=== PATIENT | female | born 1950 | race African-American/Black ===

== ENCOUNTER 2018-04-28 15:38 | Inpatient (IN) | payer OTHER ==
[~2018-04-28] VITALS: Ht 167.6 cm; Wt 79.4 kg
[~2018-04-28 15:38] MED LIST: AMARYL; AMLODIPINE BESYL5 MG PO; ASA81 MG; CIPRO500 MG PO; GABAPENTIN600 MG PO; HYDROCHLORIC2 MG/ML; LANTUS SOL100 UNIT/1; LASIX20 MG PO; LEVOTHYROXINE150 MCG PO; METFORMIN HCL500 MG; NEURONTIN300 MG; NOVOLOG100 U/ML; PRINIVIL5 MG; SYNTHROID50 MCG; TRIMETHOPRIM100 MG PO
[2018-04-28] MEDS ORDERED: ENALAPRIL MALEA10 MG (15:54)
[2018-04-28] MEDS ORDERED: HYDROCHLOROTH12.5 MG (15:55)
[2018-05-14] MEDS ORDERED: PENTOXIFYLLINE400 MG PO (11:19)
[2018-05-14] MEDS ORDERED: HumaLOG 100 UNIT/1 M SUBCUTANEO (11:19)
[2018-05-14] MEDS ORDERED: NeurRONTin 400MG CAP PO (11:19)
[2018-05-14] MEDS ORDERED: AMLODIPINE BESYL5 MG PO (11:19)
[2018-05-14] MEDS ORDERED: ASA-EC81 MG PO (11:19)
[2018-05-14] MEDS ORDERED: LEVOTHYROXINE150 MCG PO (11:19)
[2018-05-14] MEDS ORDERED: Lantus 1000 UNITS/10 SUBCUTANEO (11:19)
[2018-05-14] MEDS ORDERED: METOPROLOL TART50 MG PO (11:19)
== END 2018-05-14 14:19 | disposition home or self-care (01) | DRG 871 ==
LOC: ER 15:38 → SEC-K 04-29 12:48 → MEDJ 04-29 12:48
PROVIDERS: Radiology Vascular & Interventional Radiology
PROC: BT43ZZZ Ultrasonography of Bilateral Kidneys (ICD-10-PCS; 2018-04-29)
PROC: B543ZZA Ultrasonography of Right Jugular Veins, Guidance (ICD-10-PCS; 2018-05-05)
PROC: 05HM33Z Insertion of Infusion Device into Right Internal Jugular Vein, Percutaneous Approach (ICD-10-PCS; principal; 2018-05-05 21:00)
PROC: 5A1D70Z Performance of Urinary Filtration, Intermittent, Less than 6 Hours Per Day (ICD-10-PCS; 2018-05-06)
PROC: 30233N1 Transfusion of Nonautologous Red Blood Cells into Peripheral Vein, Percutaneous Approach (ICD-10-PCS; 2018-05-11)
DX: A41.9 Sepsis, unspecified organism (principal); J81.0 Acute pulmonary edema; N18.6 End stage renal disease; I50.33 Acute on chronic diastolic (congestive) heart failure; N39.0 Urinary tract infection, site not specified; N17.8 Other acute kidney failure; I13.2 Hypertensive heart and chronic kidney disease with heart failure and with stage 5 chronic kidney disease, or end stage renal disease; E86.0 Dehydration; K29.00 Acute gastritis without bleeding; E11.42 Type 2 diabetes mellitus with diabetic polyneuropathy; E11.22 Type 2 diabetes mellitus with diabetic chronic kidney disease; E89.0 Postprocedural hypothyroidism; E11.65 Type 2 diabetes mellitus with hyperglycemia; Z89.422 Acquired absence of other left toe(s); Z90.5 Acquired absence of kidney; D63.1 Anemia in chronic kidney disease

== ENCOUNTER 2018-05-27 08:39 | Inpatient (IN) | payer OTHER ==
[~2018-05-27] VITALS: Ht 167.6 cm; Wt 81.6 kg
[~2018-05-27 08:39] MED LIST changes: +ASA-EC81 MG PO; +ENALAPRIL MALEA10 MG; +HYDROCHLOROTH12.5 MG; +HumaLOG 100 UNIT/1 M SUBCUTANEO; +Lantus 1000 UNITS/10 SUBCUTANEO; +METOPROLOL TART50 MG PO; +NeurRONTin 400MG CAP PO; +PENTOXIFYLLINE400 MG PO
[2018-06-09] MEDS ORDERED: NeurRONTin 400MG CAP PO (16:39)
[2018-06-09] MEDS ORDERED: HumaLOG 100 UNIT/1 M SUBCUTANEO (16:39)
[2018-06-09] MEDS ORDERED: TOPROL XL50 M1 PO (16:39)
[2018-06-09] MEDS ORDERED: LISINOPRIL20 MG PO (16:39)
[2018-06-09] MEDS ORDERED: ADULT ASPIRIN81 MG PO (16:39)
[2018-06-09] MEDS ORDERED: Lantus 1000 UNITS/10 SUBCUTANEO (16:39)
[2018-06-09] MEDS ORDERED: LEVOTHYROXINE150 MCG PO (16:39)
[2018-06-09] MEDS ORDERED: AMLODIPINE BESYL5 MG PO (16:39)
== END 2018-06-09 22:13 | disposition home health service (06) | DRG 264 ==
LOC: ER 08:39 → SURH 16:33 → SEC-K 16:33 → MEDI 19:16 → MEDJ 21:00 → SURH 21:16
PROC: 5A1D70Z Performance of Urinary Filtration, Intermittent, Less than 6 Hours Per Day (ICD-10-PCS; 2018-05-28)
PROC: 0QBR0ZZ Excision of Left Toe Phalanx, Open Approach (ICD-10-PCS; principal; 2018-06-01)
PROC: 0JBR0ZZ Excision of Left Foot Subcutaneous Tissue and Fascia, Open Approach (ICD-10-PCS; 2018-06-08)
DX: E11.52 Type 2 diabetes mellitus with diabetic peripheral angiopathy with gangrene (principal); N18.6 End stage renal disease; I96 Gangrene, not elsewhere classified; I13.2 Hypertensive heart and chronic kidney disease with heart failure and with stage 5 chronic kidney disease, or end stage renal disease; N17.8 Other acute kidney failure; M86.172 Other acute osteomyelitis, left ankle and foot; I50.30 Unspecified diastolic (congestive) heart failure; E11.65 Type 2 diabetes mellitus with hyperglycemia; E11.22 Type 2 diabetes mellitus with diabetic chronic kidney disease; Z99.2 Dependence on renal dialysis; E03.8 Other specified hypothyroidism; D63.1 Anemia in chronic kidney disease; E11.42 Type 2 diabetes mellitus with diabetic polyneuropathy; E86.0 Dehydration; B96.1 Klebsiella pneumoniae [K. pneumoniae] as the cause of diseases classified elsewhere; B95.1 Streptococcus, group B, as the cause of diseases classified elsewhere; B95.61 Methicillin susceptible Staphylococcus aureus infection as the cause of diseases classified elsewhere; Z16.12 Extended spectrum beta lactamase (ESBL) resistance; E11.69 Type 2 diabetes mellitus with other specified complication

== ENCOUNTER 2018-10-31 13:25 | Inpatient (IN) | payer OTHER ==
[~2018-10-31] VITALS: Ht 170.2 cm; Wt 82.6 kg
[~2018-10-31 13:25] MED LIST changes: +ADULT ASPIRIN81 MG PO; +LISINOPRIL20 MG PO; +TOPROL XL50 M1 PO
[2018-11-02] MEDS ORDERED: LANTUS SOL100 UNIT/1 SUBCUTANEO (11:03)
[2018-11-02] MEDS ORDERED: HUMALOG100 UNIT/1 SUBCUTANEO (11:06)
== END 2018-11-11 19:55 | disposition home or self-care (01) | DRG 314 ==
LOC: ER 13:25 → MEDI 11-01 09:37
PROVIDERS: Radiology Vascular & Interventional Radiology; ADMIT Internal Medicine
PROC: 0JHD3XZ Insertion of Tunneled Vascular Access Device into Right Upper Arm Subcutaneous Tissue and Fascia, Percutaneous Approach (ICD-10-PCS; 2018-11-04)
PROC: 0JPV3XZ Removal of Tunneled Vascular Access Device from Upper Extremity Subcutaneous Tissue and Fascia, Percutaneous Approach (ICD-10-PCS; principal; 2018-11-04 19:00)
PROC: 8E0ZXY6 Isolation (ICD-10-PCS; 2018-11-06)
DX: T82.49XA Other complication of vascular dialysis catheter, initial encounter (principal); N18.6 End stage renal disease; J96.21 Acute and chronic respiratory failure with hypoxia; A41.89 Other specified sepsis; I13.2 Hypertensive heart and chronic kidney disease with heart failure and with stage 5 chronic kidney disease, or end stage renal disease; N17.8 Other acute kidney failure; E11.52 Type 2 diabetes mellitus with diabetic peripheral angiopathy with gangrene; I96 Gangrene, not elsewhere classified; N39.0 Urinary tract infection, site not specified; B37.89 Other sites of candidiasis; E11.22 Type 2 diabetes mellitus with diabetic chronic kidney disease; E11.65 Type 2 diabetes mellitus with hyperglycemia; I50.9 Heart failure, unspecified; Z99.2 Dependence on renal dialysis; Z79.4 Long term (current) use of insulin; Z99.81 Dependence on supplemental oxygen; D63.1 Anemia in chronic kidney disease; Z89.422 Acquired absence of other left toe(s); E11.40 Type 2 diabetes mellitus with diabetic neuropathy, unspecified; Z88.1 Allergy status to other antibiotic agents; E86.0 Dehydration; E87.8 Other disorders of electrolyte and fluid balance, not elsewhere classified; B96.1 Klebsiella pneumoniae [K. pneumoniae] as the cause of diseases classified elsewhere; E86.9 Volume depletion, unspecified

== ENCOUNTER 2019-05-05 10:17 | Emergency (ER) | payer OTHER ==
[~2019-05-05] VITALS: Ht 167.6 cm; Wt 83.0 kg
[~2019-05-05 10:17] MED LIST changes: +HUMALOG100 UNIT/1 SUBCUTANEO; +LANTUS SOL100 UNIT/1 SUBCUTANEO
== END 2019-05-05 18:47 | disposition home or self-care (01) ==
LOC: ER 10:17
DX: N39.0 Urinary tract infection, site not specified (principal); N19 Unspecified kidney failure; K59.09 Other constipation; K31.89 Other diseases of stomach and duodenum; K44.9 Diaphragmatic hernia without obstruction or gangrene; R10.32 Left lower quadrant pain; R11.10 Vomiting, unspecified; K44.1 Diaphragmatic hernia with gangrene

== ENCOUNTER 2019-07-13 20:11 | Inpatient (IN) | payer OTHER ==
[~2019-07-13] VITALS: Ht 167.6 cm; Wt 83.5 kg
--- NOTE | 2019-07-13 20:32 | NUR ---
PACIENTE CON PROBLEMAS EN EL CATETER DE DIALISIS. INSERTADO EN EL AUXILIO MUTUO.
--- NOTE | 2019-07-13 21:22 | NUR ---
SERECIBE PACIENTE ALERTA Y ORIENTADA EVALUADA POR EL DR. MULLINS SE ORIENTA A PACIENTE SOBRE TRATAMIENTO MEDICO SE EXTRAEN MUESTRAS DE [place] Y SE ADMINISTRAN MEDICAMENTOS GERTRUDIS ORDEN MEDICA BAJOMEDIDAS ASEPTICAS.SE CHRISTIAN CULTIVOS DE [place].
== END 2019-07-27 14:43 | disposition home or self-care (01) | DRG 314 ==
LOC: ER 20:11 → SEC-K 22:01 → MEDJ 22:01 → O/R 07-14 08:06 → SEC-K 07-14 10:21 → MEDJ 07-14 11:53
PROVIDERS: Radiology Vascular & Interventional Radiology; ADMIT Internal Medicine
PROC: 05HN33Z Insertion of Infusion Device into Left Internal Jugular Vein, Percutaneous Approach (ICD-10-PCS; 2019-07-14)
PROC: B514YZA Fluoroscopy of Left Jugular Veins using Other Contrast, Guidance (ICD-10-PCS; 2019-07-14)
PROC: 0J2SXYZ Change Other Device in Head and Neck Subcutaneous Tissue and Fascia, External Approach (ICD-10-PCS; principal; 2019-07-14 20:00)
PROC: 8E0ZXY6 Isolation (ICD-10-PCS; 2019-07-15)
PROC: 5A1D70Z Performance of Urinary Filtration, Intermittent, Less than 6 Hours Per Day (ICD-10-PCS; 2019-07-17)
PROC: BN25ZZZ Computerized Tomography (CT Scan) of Facial Bones (ICD-10-PCS; 2019-07-21)
PROC: 0JPV3XZ Removal of Tunneled Vascular Access Device from Upper Extremity Subcutaneous Tissue and Fascia, Percutaneous Approach (ICD-10-PCS; 2019-07-25)
PROC: 0JHF3XZ Insertion of Tunneled Vascular Access Device into Left Upper Arm Subcutaneous Tissue and Fascia, Percutaneous Approach (ICD-10-PCS; 2019-07-25)
DX: T82.41XA Breakdown (mechanical) of vascular dialysis catheter, initial encounter (principal); N18.6 End stage renal disease; I13.2 Hypertensive heart and chronic kidney disease with heart failure and with stage 5 chronic kidney disease, or end stage renal disease; N17.8 Other acute kidney failure; B37.41 Candidal cystitis and urethritis; B37.0 Candidal stomatitis; D63.1 Anemia in chronic kidney disease; E11.65 Type 2 diabetes mellitus with hyperglycemia; E03.8 Other specified hypothyroidism; R31.0 Gross hematuria; B96.1 Klebsiella pneumoniae [K. pneumoniae] as the cause of diseases classified elsewhere; E11.22 Type 2 diabetes mellitus with diabetic chronic kidney disease; Z99.2 Dependence on renal dialysis; Z79.4 Long term (current) use of insulin; Z89.422 Acquired absence of other left toe(s)

== ENCOUNTER 2019-09-08 15:38 | Inpatient (IN) | payer OTHER ==
[~2019-09-08] VITALS: Ht 167.6 cm; Wt 83.0 kg
== END 2019-09-14 18:19 | disposition home or self-care (01) | DRG 699 ==
LOC: ER 15:38 → MEDJ 09-09 11:00
PROVIDERS: ADMIT Internal Medicine
PROC: 8E0ZXY6 Isolation (ICD-10-PCS; principal; 2019-09-09)
DX: E11.22 Type 2 diabetes mellitus with diabetic chronic kidney disease (principal); I12.0 Hypertensive chronic kidney disease with stage 5 chronic kidney disease or end stage renal disease; N39.0 Urinary tract infection, site not specified; E11.65 Type 2 diabetes mellitus with hyperglycemia; E11.40 Type 2 diabetes mellitus with diabetic neuropathy, unspecified; N18.6 End stage renal disease; N17.8 Other acute kidney failure; R31.0 Gross hematuria; D63.1 Anemia in chronic kidney disease; B96.1 Klebsiella pneumoniae [K. pneumoniae] as the cause of diseases classified elsewhere; Z79.4 Long term (current) use of insulin; Z99.2 Dependence on renal dialysis

== ENCOUNTER 2019-10-14 10:17 | Emergency (ER) | payer OTHER ==
[~2019-10-14] VITALS: Ht 167.6 cm; Wt 83.0 kg
== END 2019-10-14 20:40 | disposition home or self-care (01) ==
LOC: ER 10:17
DX: K29.70 Gastritis, unspecified, without bleeding (principal); R10.13 Epigastric pain

== ENCOUNTER 2019-11-21 05:40 | Inpatient (IN) | payer OTHER ==
[~2019-11-21] VITALS: Ht 162.6 cm; Wt 95.3 kg
[2019-12-19] MEDS ORDERED: FLUCONAZOLE200 MG PO (12:28)
== END 2019-12-19 14:04 | disposition home or self-care (01) | DRG 207 ==
LOC: ER 05:40 → ICU-2 08:21 → MEDJ 11-25 15:17
PROVIDERS: ADMIT Internal Medicine
PROC: 0BH17EZ Insertion of Endotracheal Airway into Trachea, Via Natural or Artificial Opening (ICD-10-PCS; principal; 2019-11-21)
PROC: 5A1955Z Respiratory Ventilation, Greater than 96 Consecutive Hours (ICD-10-PCS; 2019-11-21)
PROC: 5A1D70Z Performance of Urinary Filtration, Intermittent, Less than 6 Hours Per Day (ICD-10-PCS; 2019-11-22)
PROC: 4A033R1 Measurement of Arterial Saturation, Peripheral, Percutaneous Approach (ICD-10-PCS; 2019-11-23)
PROC: 30233N1 Transfusion of Nonautologous Red Blood Cells into Peripheral Vein, Percutaneous Approach (ICD-10-PCS; 2019-11-24)
DX: J96.00 Acute respiratory failure, unspecified whether with hypoxia or hypercapnia (principal); N18.6 End stage renal disease; J69.0 Pneumonitis due to inhalation of food and vomit; I12.0 Hypertensive chronic kidney disease with stage 5 chronic kidney disease or end stage renal disease; N39.0 Urinary tract infection, site not specified; Z16.12 Extended spectrum beta lactamase (ESBL) resistance; E11.22 Type 2 diabetes mellitus with diabetic chronic kidney disease; E11.40 Type 2 diabetes mellitus with diabetic neuropathy, unspecified; E11.65 Type 2 diabetes mellitus with hyperglycemia; E11.649 Type 2 diabetes mellitus with hypoglycemia without coma; D63.1 Anemia in chronic kidney disease; B96.1 Klebsiella pneumoniae [K. pneumoniae] as the cause of diseases classified elsewhere; E89.0 Postprocedural hypothyroidism; Y83.8 Other surgical procedures as the cause of abnormal reaction of the patient, or of later complication, without mention of misadventure at the time of the procedure; Z79.4 Long term (current) use of insulin; Z89.422 Acquired absence of other left toe(s); Z99.2 Dependence on renal dialysis

== ENCOUNTER 2019-12-24 11:41 | Emergency (ER) | payer OTHER ==
[~2019-12-24] VITALS: Ht 167.6 cm; Wt 81.6 kg
[~2019-12-24 11:41] MED LIST changes: +FLUCONAZOLE200 MG PO
== END 2019-12-24 12:41 | disposition home or self-care (01) ==
LOC: ER 11:41
DX: E11.622 Type 2 diabetes mellitus with other skin ulcer (principal); L89.629 Pressure ulcer of left heel, unspecified stage; Z79.4 Long term (current) use of insulin

== ENCOUNTER 2020-04-17 09:45 | Inpatient (IN) | payer OTHER ==
[~2020-04-17] VITALS: Ht 165.1 cm; Wt 80.7 kg
[2020-04-17] MEDS ORDERED: LEVO-T175 MCG (10:16)
--- NOTE | 2020-04-17 10:27 | NUR ---
PACIENTE REFIERE DOLOR EN ROXANNE DERECHO SE OBSERVA CON VENDAJE EL CUAL ESTA SUPURANDO LA ULCERA QUE TIENE EL LUNES LE REALIZARON EL CUIDADO. PRESENTA NUASEAS Y FIEBRE
--- NOTE | 2020-04-17 11:55 | NUR ---
PACIENTE ALERTA Y ORIENTADA EN LAS CARMELLA ESFERAS, SE CHRISTIAN MUESTRAS DE [place] BAJO MEDIDAS ASEPTICAS Y CULTIVOS DE [place] BAJO MEDIDAS ESTERILES. PACIENTE REHUSA MEDICAMENTO ACETAMINOPHEN 1GR PO. SE CARLOS CULTIVO DE ULCERA DE PIE. PACIENTE ORIENTADA SOBRE PROCEDIMIENTOS Y MEDICACION VERBALIZA ENTENDER. SE DRAKE BAJO OBSERVACION POR CAMBIOS.
--- NOTE | 2020-04-17 15:22 | NUR ---
SE RECIBE PTE ALERTA Y ORIENTADA X3 EN BETSY CON BARANDAS ELEVADAS. SE RECIBE PTE CANALIZADA AREA LUCIEN DE EDEMA Y DE ENROJECIMIENTO. PTE EN ESPERA DE CONSULTA CON DR.LOPEZ ROWLEY. PTE PENDIENTE A ENTREGAR U/A.
== END 2020-04-26 17:20 | disposition home health service (06) | DRG 239 ==
LOC: ER 09:45 → MEDJ 18:49 → SEC-K 18:49 → MEDJ 19:52
PROVIDERS: Specialist; ADMIT Specialist; ATTEND Specialist
PROC: 4A12X4Z Monitoring of Cardiac Electrical Activity, External Approach (ICD-10-PCS; 2020-04-17)
PROC: 5A1D70Z Performance of Urinary Filtration, Intermittent, Less than 6 Hours Per Day (ICD-10-PCS; 2020-04-17)
PROC: B43FZZZ Magnetic Resonance Imaging (MRI) of Right Lower Extremity Arteries (ICD-10-PCS; 2020-04-18)
PROC: 0Y6H0Z1 Detachment at Right Lower Leg, High, Open Approach (ICD-10-PCS; principal; 2020-04-19 11:00)
PROC: 02H633Z Insertion of Infusion Device into Right Atrium, Percutaneous Approach (ICD-10-PCS; 2020-04-21)
DX: E11.52 Type 2 diabetes mellitus with diabetic peripheral angiopathy with gangrene (principal); N18.6 End stage renal disease; B37.49 Other urogenital candidiasis; L97.419 Non-pressure chronic ulcer of right heel and midfoot with unspecified severity; I70.261 Atherosclerosis of native arteries of extremities with gangrene, right leg; M86.171 Other acute osteomyelitis, right ankle and foot; E11.621 Type 2 diabetes mellitus with foot ulcer; E11.65 Type 2 diabetes mellitus with hyperglycemia; E11.22 Type 2 diabetes mellitus with diabetic chronic kidney disease; D63.1 Anemia in chronic kidney disease; E11.40 Type 2 diabetes mellitus with diabetic neuropathy, unspecified; I87.2 Venous insufficiency (chronic) (peripheral); E89.0 Postprocedural hypothyroidism; B96.5 Pseudomonas (aeruginosa) (mallei) (pseudomallei) as the cause of diseases classified elsewhere; E11.649 Type 2 diabetes mellitus with hypoglycemia without coma; I50.9 Heart failure, unspecified; I11.0 Hypertensive heart disease with heart failure; Z20.828 Contact with and (suspected) exposure to other viral communicable diseases; Z99.2 Dependence on renal dialysis; Z79.4 Long term (current) use of insulin
CPT/HCPCS: 73725

== ENCOUNTER 2020-05-03 10:04 | Inpatient (IN) | payer OTHER ==
[~2020-05-03] VITALS: Ht 162.6 cm; Wt 61.2 kg
[~2020-05-03 10:04] MED LIST changes: +LEVO-T175 MCG
== END 2020-05-28 15:33 | disposition home or self-care (01) | DRG 264 ==
LOC: ER 10:04 → MEDI 15:15
PROVIDERS: ADMIT Specialist; ATTEND Specialist
PROC: 30233N1 Transfusion of Nonautologous Red Blood Cells into Peripheral Vein, Percutaneous Approach (ICD-10-PCS; 2020-05-03)
PROC: 5A1D70Z Performance of Urinary Filtration, Intermittent, Less than 6 Hours Per Day (ICD-10-PCS; 2020-05-03)
PROC: 8E0ZXY6 Isolation (ICD-10-PCS; 2020-05-09)
PROC: 0DB78ZX Excision of Stomach, Pylorus, Via Natural or Artificial Opening Endoscopic, Diagnostic (ICD-10-PCS; 2020-05-09)
PROC: 0JBP0ZZ Excision of Left Lower Leg Subcutaneous Tissue and Fascia, Open Approach (ICD-10-PCS; principal; 2020-05-15)
DX: I13.2 Hypertensive heart and chronic kidney disease with heart failure and with stage 5 chronic kidney disease, or end stage renal disease (principal); N18.6 End stage renal disease; R57.1 Hypovolemic shock; K92.0 Hematemesis; T87.44 Infection of amputation stump, left lower extremity; Z16.12 Extended spectrum beta lactamase (ESBL) resistance; N39.0 Urinary tract infection, site not specified; D63.1 Anemia in chronic kidney disease; E11.22 Type 2 diabetes mellitus with diabetic chronic kidney disease; E11.65 Type 2 diabetes mellitus with hyperglycemia; T87.89 Other complications of amputation stump; Y83.8 Other surgical procedures as the cause of abnormal reaction of the patient, or of later complication, without mention of misadventure at the time of the procedure; B96.1 Klebsiella pneumoniae [K. pneumoniae] as the cause of diseases classified elsewhere; E11.42 Type 2 diabetes mellitus with diabetic polyneuropathy; R09.02 Hypoxemia; R94.31 Abnormal electrocardiogram [ECG] [EKG]; Z79.4 Long term (current) use of insulin; Z99.2 Dependence on renal dialysis; Z20.828 Contact with and (suspected) exposure to other viral communicable diseases; I50.9 Heart failure, unspecified; K29.60 Other gastritis without bleeding

== ENCOUNTER 2020-06-11 08:32 | Inpatient (IN) | payer OTHER ==
[~2020-06-11] VITALS: Ht 167.6 cm; Wt 81.2 kg
[2020-06-15] MEDS ORDERED: CARdura 4MG TABLET PO (11:53)
[2020-06-15] MEDS ORDERED: ISOSORBIDE MONO30 MG PO (11:54)
== END 2020-06-15 13:19 | disposition home or self-care (01) | DRG 193 ==
LOC: ER 08:32 → MEDJ 13:14
PROVIDERS: ADMIT Specialist; ATTEND Specialist
PROC: BB24ZZZ Computerized Tomography (CT Scan) of Bilateral Lungs (ICD-10-PCS; principal; 2020-06-11)
PROC: 4A033R1 Measurement of Arterial Saturation, Peripheral, Percutaneous Approach (ICD-10-PCS; 2020-06-11)
PROC: 3E0F7GC Introduction of Other Therapeutic Substance into Respiratory Tract, Via Natural or Artificial Opening (ICD-10-PCS; 2020-06-11)
PROC: 4A12X4Z Monitoring of Cardiac Electrical Activity, External Approach (ICD-10-PCS; 2020-06-11)
PROC: 5A1D70Z Performance of Urinary Filtration, Intermittent, Less than 6 Hours Per Day (ICD-10-PCS; 2020-06-11)
PROC: 05HY33Z Insertion of Infusion Device into Upper Vein, Percutaneous Approach (ICD-10-PCS; 2020-06-12)
DX: J18.9 Pneumonia, unspecified organism (principal); N18.6 End stage renal disease; N39.0 Urinary tract infection, site not specified; M86.671 Other chronic osteomyelitis, right ankle and foot; I13.2 Hypertensive heart and chronic kidney disease with heart failure and with stage 5 chronic kidney disease, or end stage renal disease; I50.9 Heart failure, unspecified; E03.8 Other specified hypothyroidism; E11.22 Type 2 diabetes mellitus with diabetic chronic kidney disease; E11.65 Type 2 diabetes mellitus with hyperglycemia; E11.40 Type 2 diabetes mellitus with diabetic neuropathy, unspecified; D63.1 Anemia in chronic kidney disease; L89.619 Pressure ulcer of right heel, unspecified stage; L89.629 Pressure ulcer of left heel, unspecified stage; Z20.828 Contact with and (suspected) exposure to other viral communicable diseases; Z99.2 Dependence on renal dialysis; Z79.4 Long term (current) use of insulin

== ENCOUNTER 2020-09-12 14:59 | Emergency (ER) | payer OTHER ==
[~2020-09-12] VITALS: Ht 167.6 cm; Wt 78.9 kg
[~2020-09-12 14:59] MED LIST changes: +CARdura 4MG TABLET PO; +ISOSORBIDE MONO30 MG PO
== END 2020-09-12 16:42 | disposition home or self-care (01) ==
LOC: ER 14:59
DX: S30.0XXA Contusion of lower back and pelvis, initial encounter (principal); M54.5 Low back pain; W18.39XA Other fall on same level, initial encounter; Y93.89 Activity, other specified; Y92.098 Other place in other non-institutional residence as the place of occurrence of the external cause; Y99.8 Other external cause status

== ENCOUNTER 2023-12-25 16:14 | Emergency (ER) | payer OTHER ==
[~2023-12-25] VITALS: Ht 167.6 cm; Wt 83.0 kg
[2023-12-25] MEDS ORDERED: METOCLOPRAMIDE HCL 5 MG/ML VIAL IM STA (16:45)
[2023-12-25] MEDS ORDERED: INSULIN REGULAR, HUMAN 1,000 UNIT/10 ML UNITS IV STA (16:47)
[2023-12-25] MEDS ORDERED: INSULIN REGULAR, HUMAN 1,000 UNIT/10 ML UNITS SUBCUTANEO STA (16:48)
[2023-12-25 17:29] LABS: HEMATOCRIT 29.7 % (36.0-45.00); HEMOGLOBIN 9.8 g/dL (12.0-15.00); MEAN CELL VOLUME 87.4 fL (80.00-100.00); MEAN CORPUSCULAR HEMOGLOBIN 28.9 pg (27.00-32.0); MEAN CORPUSCULAR HGB CONC 33.1 g/dl (32.0-36.0); PLATELET COUNT 168 K/uL (150-450); RED BLOOD COUNT 3.39 M/uL (4.00-6.00); RED CELL DISTRIBUTION WIDTH 14.7 % (11.5-14.5)
[2023-12-25 18:16] LABS: ALBUMIN 2.7 gm/dL (3.4-5.0); BILIRUBIN TOTAL 0.45 mg/dL (0.3-1.2); CALCIUM 8.5 mg/dL (8.5-10.1); GFR 3.23; GLOBULINA 5.5 G/DL (2.4-3.5); POTASSIUM 4.67 mEq/L (3.5-5.1); TOTAL PROTEIN 8.2 gm/dL (6.4-8.2)
[2023-12-25 18:34] LABS: CREATININE SERUM 11.6 mg/dL (0.55-1.02)
[2023-12-25 20:13] LABS: ABG PH 7.456 (7.35-7.45)
[2023-12-25 20:14] LABS: ABG pCO2 39.5 mmHg (35-45)
[2023-12-25 20:15] LABS: ABG PO2 59.9 mmHg (80-100); BASE EXCESS 3.2 mmol/l; BICARBONATE 27.2 mmol/l (23-25); SaO2 92.2 %; Tco2 28.4 mmol/l; allen test SATISFACTORY; o2 21 %; puncture site RADIAL LEFT
== END 2023-12-25 21:42 | disposition home or self-care (01) ==
LOC: ER 16:14
DX: E11.43 Type 2 diabetes mellitus with diabetic autonomic (poly)neuropathy (principal); E11.65 Type 2 diabetes mellitus with hyperglycemia; N18.6 End stage renal disease; K31.84 Gastroparesis